=== PATIENT | male | born 1975 | race Caucasian/White ===

== ENCOUNTER 2020-10-10 00:35 | Inpatient (IN) | payer OTHER ==
[2020-10-10] MEDS ORDERED: Boostrix 0.5 ML (Tdap) VIAL ONE (00:40)
[2020-10-10 01:01] LABS: Hemoglobin 15.3 g/dL (14.0-18.0); Mean Corpuscular Hemoglobin 31.6 pg (27.0-31.0); Mean Corpuscular Volume 90.2 fL (78.0-98.0); Mean Platelet Volume 7.6 fL (7.4-10.4); Platelet Count 266 thou/uL (130-400); RBC Distribution Width 11.3 % (11.5-14.5); Red Blood Cell (RBC) Count 4.86 mill/uL (4.70-6.10); White Blood Cell (WBC) Count 30.7 thou/uL (4.8-10.8)
[2020-10-10 01:13] LABS: Band 8 % (5-11); Eosinophils 2 % (0-10); Lymphocytes 20 % (21-51); MDiff Complete? YES; Monocytes 6 % (0-10); Neutrophil 64 % (42-75)
[2020-10-10 01:18] LABS: ALT (SGPT) 129 U/L (8-55); AST (SGOT) 136 U/L (5-34); Albumin 3.6 g/dL (3.5-5.0); Alkaline Phosphatase 74 U/L (40-110); Anion Gap 19 mmol/L (10-20); BUN (Urea Nitrogen) 15 mg/dL (8.9-20.6); Bilirubin, Total 0.3 mg/dL (0.2-1.2); Calc. Creatinine Clearance 0 mL/min (70-130); Calcium 7.9 mg/dL (7.8-10.44); Carbon Dioxide 13 mmol/L (22-29); Chloride 107 mmol/L (98-107); Globulin 2.6 g/dL (2.4-3.5); Glucose 192 mg/dL (70-105); Potassium 3.7 mmol/L (3.5-5.1); Protein, Total 6.2 g/dL (6.0-8.3); Sodium 135 mmol/L (136-145)
[2020-10-10] MEDS ORDERED: Fentanyl 100 MCG/2 ML VIAL ONE ×4 (01:35→22:18)
[2020-10-10 02:35] LABS: Phosphorus 3.6 mg/dL (2.3-4.7)
[2020-10-10 02:56] LABS: Lactic Acid 4.3 mmol/L (0.5-2.2)
[2020-10-10 03:27] LABS: Magnesium 1.7 mg/dL (1.6-2.6)
[2020-10-10] MEDS ORDERED: Naloxone HCl 0.4 mg/ml Vial IV PRN (03:47)
[2020-10-10] MEDS ORDERED: Promethazine HCl 25 MG/ML VIAL IM PRN ×2 (03:47→22:08)
[2020-10-10] MEDS ORDERED: Ondansetron PF 4 MG/2 ML Vial IVP PRN ×2 (03:47→22:07)
[2020-10-10] MEDS ORDERED: diphenhydrAMINE 25 MG CAP PO PRN (03:47)
[2020-10-10] MEDS ORDERED: diphenhydrAMINE 50 MG/ML VIAL IM PRN (03:47)
[2020-10-10] MEDS ORDERED: HYDROmorphone 10 mg/100 ml CADD IVPB PRN ×2 (03:47→22:35)
[2020-10-10] MEDS ORDERED: diphenhydrAMINE 50 MG/ML VIAL IVP PRN (03:47)
[2020-10-10] MEDS ORDERED: Ketorolac Tromethamine 30 MG/ML VIAL IVP PRN (03:47)
[2020-10-10] MEDS ORDERED: Dextrose 5% in Water 1,000 ML IV PRN (03:55)
[2020-10-10] MEDS ORDERED: Dextrose 50% Abboject 50 ML SYRINGE SLOW IVP PRN (03:55)
[2020-10-10] MEDS ORDERED: hydrALAZINE 20 MG/ML VIAL SLOW IVP PRN (03:55)
[2020-10-10] MEDS ORDERED: Communication Order-Pharmacy FS SCH (04:00)
[2020-10-10] MEDS ORDERED: Potassium Phosphate 15 MMOL in Sodium Chloride 0.9% 250 ML 250 ML IVPB SCH (04:30)
[2020-10-10 04:47] LABS: Hemoglobin 13.9 g/dL (14.0-18.0); Mean Corpuscular Hemoglobin 28.7 pg (27.0-31.0); Mean Corpuscular Volume 89.6 fL (78.0-98.0); Mean Platelet Volume 7.6 fL (7.4-10.4); Platelet Count 242 thou/uL (130-400); RBC Distribution Width 11.5 % (11.5-14.5); Red Blood Cell (RBC) Count 4.86 mill/uL (4.70-6.10); White Blood Cell (WBC) Count 22.1 thou/uL (4.8-10.8)
[2020-10-10] MEDS ORDERED: Magnesium 2 GM/50 ML 2 GM in Premix Bag 1 BAG IVPB SCH (05:00)
[2020-10-10 05:33] LABS: Anion Gap 20 mmol/L (10-20); BUN (Urea Nitrogen) 18 mg/dL (8.9-20.6); CK (CPK) 2058 U/L (30-200); Calc. Creatinine Clearance 0 mL/min (70-130); Calcium 7.9 mg/dL (7.8-10.44); Carbon Dioxide 17 mmol/L (22-29); Chloride 105 mmol/L (98-107); Glucose 163 mg/dL (70-105); Magnesium 1.7 mg/dL (1.6-2.6); Phosphorus 3.4 mg/dL (2.3-4.7); Potassium 3.7 mmol/L (3.5-5.1); Sodium 138 mmol/L (136-145)
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
[2020-10-10 06:09] LABS: SARS-CoV-2 NAA Rapid Test Not Detected (NotDetected)
[2020-10-10] MEDS: Sodium Chloride 0.9% 1,000 ML IV SCH ×2 (06:22→11:20)
[2020-10-10] MEDS ORDERED: Lactated Ringer's 1,000 ML IV SCH ×2 (06:45→14:00)
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
--- NOTE | 2020-10-10 07:34 | RAD ---
XR Chest 1 View Portable History: Chest pain Comparison: None. Findings: Lungs are hypoinflated. No confluent airspace consolidation, pneumothorax or effusion. Spur ious enlargement of the cardiac silhouette due to poor inspiratory effort. Impression: Poor inspiratory effort. No acute intrathoracic abnormality.
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
--- NOTE | 2020-10-10 07:49 | RAD ---
XR Forearm Rt 2 View STANDARD History: Injury Comparison: None. Findings: Mildly comminuted distal ulna metaphyseal fracture. Punctate radiopaque debris within the d orsal lateral soft tissues. Impression: 1. Mildly comminuted distal ulnar metaphyseal fracture. 2. Punctate radiopaque debris within the dorsal lateral soft tissues.
--- NOTE | 2020-10-10 07:50 | RAD ---
XR Tib Fib Rt Leg 2 View History: Injury Comparison: None. Findings: Comminuted bicondylar tibial plateau fracture with disassociation of the metaphysis from th e diaphysis. Very high likelihood of a fibular head/neck fracture. Impression: 1. Comminuted bicondylar tibial plateau fracture with metaphyseal/diaphyseal disassociation. 2. High likelihood of a fibular head/neck fracture.
--- NOTE | 2020-10-10 07:51 | RAD ---
XR Femur Rt 2 View STANDARD History: Injury Comparison: None. Findings: Femurs intact. No injury. Impression: Limited femur evaluation is intact.
--- NOTE | 2020-10-10 07:56 | RAD ---
XR Chest 1 View Portable History: Central line placement Comparison: Radiograph same day Findings: Left subclavian central venous catheter tip projects over the inferior SVC. No pneumothorax . Impression: Uncomplicated central line placement.
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
[2020-10-10] MEDS ORDERED: Potassium Phosphate 15 MMOL, Magnesium Sulfate 2 GM in Sodium Chloride 0.9% 250 ML 250 ML IVPB SCH (08:45)
[2020-10-10] MEDS ORDERED: Lidocaine 1% PF 5 ML VIAL ONE (09:37)
[2020-10-10] MEDS ORDERED: Ondansetron PF 4 MG/2 ML Vial ONE (09:37)
[2020-10-10] MEDS ORDERED: Rocuronium Bromide 10 MG/ML (10ML VIAL) ONE (09:37)
[2020-10-10] MEDS ORDERED: Dexamethasone 20 MG/5 ML VIAL ONE (09:37)
[2020-10-10] MEDS ORDERED: PHENYLEPHRINE-NS 100 MCG/ML 10 ML SYRINGE ONE (09:37)
[2020-10-10] MEDS ORDERED: PROPOFOL 200 MG/20 ML VIAL ONE (09:37)
[2020-10-10] MEDS ORDERED: Ketorolac Tromethamine 30 MG/ML VIAL ONE (09:37)
[2020-10-10] MEDS ORDERED: Glycopyrrolate 0.2 MG/ML 5 ML SYRINGE ONE (09:37)
[2020-10-10] MEDS ORDERED: diphenhydrAMINE 50 MG/ML VIAL ONE (09:37)
[2020-10-10 10:29] LABS: Lactic Acid 4.5 mmol/L (0.5-2.2)
[2020-10-10] MEDS ORDERED: Iopamidol-370 76% 500 ML 1 ML ONE ×2 (10:32→10:33)
[2020-10-10] MEDS: Famotidine/PF 20 mg/2ml Vial SLOW IVP SCH (11:21)
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
[2020-10-10 15:49] VITALS: BMI 49.6
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
[2020-10-10] MEDS ORDERED: Neomycin-Polymyxin 1 ML AMP ONE ×2 (17:53→19:20)
[2020-10-10] MEDS ORDERED: HYDROmorphone 2 MG/ML VIAL ONE (19:55)
[2020-10-10] MEDS ORDERED: Rocuronium Bromide 50 MG/5 ML VIAL ONE (19:56)
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
[2020-10-10] MEDS ORDERED: Lidocaine 1% w/Epinephrine 1:100K 20 ML VIAL ONE (21:31)
[2020-10-10] MEDS ORDERED: Bupivacaine PF 0.5% 30 ML VIAL ONE (21:31)
[2020-10-10] MEDS ORDERED: EPINEPHrine 1 MG/ML AMP ONE (21:34)
[2020-10-10] MEDS ORDERED: Cepastat Lozenges 1 LOZ PO PRN (22:07)
[2020-10-10] MEDS ORDERED: Ondansetron ODT 4 MG TAB PO PRN (22:07)
[2020-10-10] MEDS ORDERED: Bisacodyl 10 MG SUPP PR PRN (22:07)
[2020-10-10] MEDS ORDERED: Fentanyl 100 MCG/2 ML VIAL SLOW IVP PRN (22:07)
[2020-10-10] MEDS ORDERED: Milk Of Magnesia 30 ML UDCUP PO PRN (22:07)
[2020-10-10] MEDS ORDERED: Fleet Enema 133 ML BOT PR PRN (22:07)
[2020-10-10] MEDS ORDERED: Ondansetron HCl/PF 4 MG/2 ML Vial IVP PRN (22:08)
[2020-10-10] MEDS ORDERED: Meperidine HCl/PF 25 MG/ML VIAL SLOW IVP PRN (22:08)
[2020-10-10] MEDS ORDERED: HYDROmorphone 2 MG/ML VIAL SLOW IVP PRN (22:08)
[2020-10-10] MEDS ORDERED: Senokot S 8.6-50 MG TAB PO SCH (22:30)
[2020-10-11] MEDS: Famotidine/PF 20 mg/2ml Vial SLOW IVP SCH ×3 (00:13→19:53)
[2020-10-11] MEDS: Sodium Chloride 0.9% 1,000 ML IV SCH ×2 (00:14→06:06)
[2020-10-11] MEDS: Ketorolac Tromethamine 30 MG/ML VIAL IVP SCH ×4 (00:14→18:36)
[2020-10-11] MEDS: CEFAZOLIN 2 GM in Premix Bag 1 BAG IVPB SCH ×2 (00:24→08:54)
--- NOTE | 2020-10-11 01:01 | PRG ---
DATE OF SERVICE: 10/10/2020 SUBJECTIVE: The patient was seen during evening rounds, just returning from the PACU. The patient had his right lower extremity repaired by Dr. Hopkins and also stabilization of his diastasis of symphysis pubis. The patient did receive 3 L of LR in the OR. The patient's vital signs were currently stable and he remains afebrile. The patient has a Dilaudid AUTO GLASS TECHNICIAN for pain. The patient voices no complaints or concerns. His pain is controlled at this time. PLAN: Continue supportive care and AUTO GLASS TECHNICIAN Dilaudid pump for pain. Continue maintenance IV fluids until lactate clears. Regular diet as tolerated. Repeat labs in the morning. CPAP at night. The plan was discussed with the patient, who agrees. Job ID: [id number]
--- NOTE | 2020-10-11 01:40 | OP ---
DATE OF PROCEDURE: 10/10/2020 PREOPERATIVE DIAGNOSIS: Severely comminuted medial and lateral tibial plateau fractures of the right knee. POSTOPERATIVE DIAGNOSIS: Severely comminuted medial and lateral tibial plateau fractures of the right knee. PROCEDURE PERFORMED: Open reduction and internal fixation of severely comminuted medial and lateral tibial plateau fracture of the right knee. ANESTHESIA: General. DESCRIPTION OF PROCEDURE: The patient was given preoperative IV antibiotics, taken to the operating room, placed in the supine position. Initially, the patient underwent open reduction and internal fixation of symphysis pubis diastasis and then two cannulated screws were placed in the right sacroiliac joint. This was primarily performed by Dr. Aponte and I assisted him. After those procedures were performed and the incisions were closed, the right lower extremity was sterilely prepped and draped in the usual fashion and after exsanguination, tourniquet at the right proximal thigh was raised to 300 mmHg. Initially, an incision was made on the anterior medial aspect of the proximal leg and then was taken posteriorly at the area of the proximal tibia. The periosteal elevation was performed. The medial tibial plateau was located. There was posterior fragment of bone that was mainly posterior and extended down into the diaphysis. This fracture portion was reduced and internally fixed using two 3.5 cortical screws in a lag fashion. The medial tibial plateau was then brought up to its normal position and bone graft was added to provide some stability and then the medial tibial plateau was internally fixed using a Synthes T-shaped 10-hole plate, initially placing two 3.5 cortical screws to bring the plate up to the bone and then the rest of them were 3.5 locking screws, three were placed in the most proximal portion of the plate, one in the metaphysis and then another 5 in the metaphysis and proximal aspect of the shaft. Separate incision was made on the anterior lateral aspect of the leg and then brought posteriorly at the proximal portion of the tibia and again the lateral tibial plateau was noted to be very fragmented, severely comminuted. The fragments were brought up and then internally fixed using an L-shaped lateral tibial plate. Again, using 3.5 cortical screws in a lag fashion to bring the plate next to the bone and then 3.5 locking screws, five screws were used in the most proximal portion of the plate and then additional six screws were placed in the shaft and metaphyseal region. Cancellous cubes were morselized and placed in the area of defects. All this was performed under fluoroscopic visualization, which showed good position for the plate and the screws. The wounds were then copiously irrigated with antibiotic solution. They were closed using #2 Vicryl to close the muscle fascia over the bone and plates and then 0 Vicryl for the fat and subcutaneous tissue, and skin was closed with skin elizabeth. The wounds were then infiltrated with 30 mL of 0.5% Marcaine with epinephrine. Sterile dressing was applied. The patient was placed in a knee immobilizer and tourniquet was released. The patient was awakened, extubated, and transferred to recovery room in stable condition. ESTIMATED BLOOD LOSS: 300 mL. COMPLICATIONS: None. TOURNIQUET TIME: 114 minutes. Job ID: [id number]
[2020-10-11 05:34] LABS: INR-International Normal Ratio 1.2; PTT 24.5 sec (22.9-36.1); Prothrombin Time 15.7 sec (12.0-14.7)
[2020-10-11 05:49] LABS: Lactic Acid 2.2 mmol/L (0.5-2.2)
[2020-10-11 06:02] LABS: #Basophils 0.1 thou/uL (0.0-0.2); #Lymphocytes 0.9 thou/uL (1.20-3.40); #Monocytes 0.9 thou/uL (0.11-0.59); #Neutrophils 7.9 thou/uL (1.40-6.50); %Basophils 0.7 % (0.0-1.0); %Eosinophils 0.1 % (0.0-10.0); %Lymphocytes 9.5 % (21.0-51.0); %Monocytes 8.9 % (0.0-10.0); %Neutrophils 80.9 % (42.0-75.0); Hemoglobin 10.5 g/dL (14.0-18.0); Mean Corpuscular HGB CONC 33.7 g/dL (32.0-36.0); Mean Corpuscular Hemoglobin 30.7 pg (27.0-31.0); Mean Corpuscular Volume 91.1 fL (78.0-98.0); Mean Platelet Volume 7.5 fL (7.4-10.4); Platelet Count 143 thou/uL (130-400); RBC Distribution Width 11.8 % (11.5-14.5); Red Blood Cell (RBC) Count 3.41 mill/uL (4.70-6.10); White Blood Cell (WBC) Count 9.8 thou/uL (4.8-10.8)
[2020-10-11 06:26] LABS: Anion Gap 11 mmol/L (10-20); BUN (Urea Nitrogen) 12 mg/dL (8.9-20.6); CK (CPK) 3968 U/L (30-200); Calc. Creatinine Clearance 182 mL/min (70-130); Calcium 7.3 mg/dL (7.8-10.44); Carbon Dioxide 23 mmol/L (22-29); Chloride 107 mmol/L (98-107); Glucose 135 mg/dL (70-105); Magnesium 1.8 mg/dL (1.6-2.6); Phosphorus 2.5 mg/dL (2.3-4.7); Potassium 4.5 mmol/L (3.5-5.1); Sodium 136 mmol/L (136-145)
[2020-10-11] MEDS ORDERED: Aspirin 325 MG TAB PO SCH (08:00)
--- NOTE | 2020-10-11 08:03 | RAD ---
Intraoperative imaging of the pelvis: 10/10/2020 COMPARISON: CT 10/10/2020 HISTORY: ORIF of the pelvis FINDINGS: 6 intraoperative images are provided. Images demonstrate placement of a screw and plate fix ation at the level the pubic symphysis as well as placement of 2 screws traversing the right sacroiliac joint. IMPRESSION: ORIF as above.
--- NOTE | 2020-10-11 08:04 | RAD ---
Intraoperative imaging of the right knee: 10/10/2020 COMPARISON: 10/10/2020 HISTORY: ORIF FINDINGS: 4 intraoperative images are provided. Images demonstrate medial and lateral screw and plate fixation of the previously noted markedly comminuted fracture of the proximal right tibia. IMPRESSION: ORIF
[2020-10-11] MEDS: Ferrous Gluconate 324 MG TAB PO SCH ×2 (08:55→18:35)
[2020-10-11] MEDS: Multivitamin W/ Minerals 1 TAB PO SCH (08:55)
[2020-10-11] MEDS: Senokot S 8.6-50 MG TAB PO SCH ×2 (08:55→19:53)
[2020-10-11] MEDS: Polyethylene Glycol 3350 17 GM Packet PO SCH (08:56)
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
[2020-10-11] MEDS ORDERED: traMADol HCl 50 MG TAB PO PRN (13:52)
[2020-10-11] MEDS ORDERED: Morphine 4 MG/ML VIAL SLOW IVP PRN (13:53)
[2020-10-11] MEDS: Ibuprofen 200 MG TAB PO SCH ×2 (14:25→22:45)
[2020-10-11] MEDS: traMADol HCl 50 MG TAB PO SCH ×2 (14:33→19:51)
--- NOTE | 2020-10-11 15:26 | PRG ---
DATE OF SERVICE: 10/11/2020 SUBJECTIVE: The patient underwent stabilization of an open-book pelvic injury per Dr. Aponte and underwent open reduction and internal fixation of severely comminuted medial and lateral tibial plateau fractures on the right knee. The patient has fairly good pain control. He has no neurologic complaints in his lower extremities. OBJECTIVE: VITAL SIGNS: The patient has been afebrile. Pulse 109, respiratory rate 14, blood pressure 113/70, O2 saturation 94% on room air. LABORATORY DATA: Shows white count of 9.8, hemoglobin 10.5, hematocrit 31.1. His lactic acid has gone back to normal, this morning was 2.2. Both lower extremities are neurovascularly intact. PLAN: The patient will work with physical therapy. He will need to be nonweightbearing on the right lower extremity because of the nondisplaced fracture in the distal shaft of the right ulna. The patient will need to use a platform on his walker and weightbear through his right elbow and shoulder his forearm. Job ID: [id number]
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
[2020-10-11] MEDS: Acetaminophen 500 MG TAB PO SCH (18:33)
[2020-10-11] MEDS: Gabapentin 300 MG CAP PO SCH (19:52)
[2020-10-11] MEDS: Enoxaparin Sodium 30 MG/0.3 ML SYRINGE SC SCH (19:52)
[2020-10-12] MEDS: Acetaminophen 500 MG TAB PO SCH ×4 (00:59→18:05)
[2020-10-12] MEDS: traMADol HCl 50 MG TAB PO SCH ×4 (01:00→20:15)
[2020-10-12] MEDS: Ibuprofen 200 MG TAB PO SCH ×3 (05:20→22:40)
[2020-10-12 07:17] LABS: Anion Gap 11 mmol/L (10-20); BUN (Urea Nitrogen) 12 mg/dL (8.9-20.6); Calc. Creatinine Clearance 243 mL/min (70-130); Calcium 7.4 mg/dL (7.8-10.44); Carbon Dioxide 26 mmol/L (22-29); Chloride 105 mmol/L (98-107); Glucose 111 mg/dL (70-105); Phosphorus 2.1 mg/dL (2.3-4.7); Potassium 4.1 mmol/L (3.5-5.1); Sodium 138 mmol/L (136-145)
[2020-10-12 07:18] LABS: #Eosinphils 0.1 thou/uL (0.0-0.7); #Lymphocytes 2.2 thou/uL (1.20-3.40); #Monocytes 0.8 thou/uL (0.11-0.59); #Neutrophils 5.1 thou/uL (1.40-6.50); %Basophils 0.5 % (0.0-1.0); %Eosinophils 1.3 % (0.0-10.0); %Lymphocytes 26.6 % (21.0-51.0); %Monocytes 9.6 % (0.0-10.0); Hemoglobin 8.6 g/dL (14.0-18.0); Mean Corpuscular HGB CONC 33.7 g/dL (32.0-36.0); Mean Corpuscular Hemoglobin 30.5 pg (27.0-31.0); Mean Corpuscular Volume 90.8 fL (78.0-98.0); Mean Platelet Volume 7.5 fL (7.4-10.4); Platelet Count 134 thou/uL (130-400); RBC Distribution Width 11.6 % (11.5-14.5); Red Blood Cell (RBC) Count 2.81 mill/uL (4.70-6.10); White Blood Cell (WBC) Count 8.3 thou/uL (4.8-10.8)
[2020-10-12] MEDS: Gabapentin 300 MG CAP PO SCH ×2 (09:46→20:15)
[2020-10-12] MEDS: Senokot S 8.6-50 MG TAB PO SCH ×2 (09:46→20:15)
[2020-10-12] MEDS: Ferrous Gluconate 324 MG TAB PO SCH ×2 (09:46→18:05)
[2020-10-12] MEDS: Multivitamin W/ Minerals 1 TAB PO SCH (09:46)
[2020-10-12] MEDS: Polyethylene Glycol 3350 17 GM Packet PO SCH (09:47)
[2020-10-12] MEDS: Enoxaparin Sodium 30 MG/0.3 ML SYRINGE SC SCH ×2 (09:47→20:16)
[2020-10-12] MEDS: Famotidine/PF 20 mg/2ml Vial SLOW IVP SCH (13:50)
[2020-10-12] MEDS ORDERED: Sodium Chloride 0.9% 1,000 ML IV SCH (20:30)
[2020-10-12] MEDS ORDERED: Famotidine 20 MG TAB PO SCH (21:00)
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
[2020-10-12 21:39] LABS: Hemoglobin 8.5 g/dL (14.0-18.0)
[2020-10-12] MEDS: Milk Of Magnesia 30 ML UDCUP PO SCH (22:40)
[2020-10-13] MEDS: Acetaminophen 500 MG TAB PO SCH ×2 (00:22→05:01)
[2020-10-13] MEDS: traMADol HCl 50 MG TAB PO SCH ×2 (01:32→10:29)
[2020-10-13] MEDS: Ibuprofen 200 MG TAB PO SCH (05:01)
[2020-10-13 05:22] LABS: #Eosinphils 0.3 thou/uL (0.0-0.7); #Monocytes 0.7 thou/uL (0.11-0.59); #Neutrophils 5.3 thou/uL (1.40-6.50); %Basophils 0.4 % (0.0-1.0); %Eosinophils 3.2 % (0.0-10.0); %Monocytes 7.1 % (0.0-10.0); %Neutrophils 57.3 % (42.0-75.0); Hemoglobin 8.2 g/dL (14.0-18.0); Mean Corpuscular HGB CONC 33.4 g/dL (32.0-36.0); Mean Corpuscular Volume 89.8 fL (78.0-98.0); Mean Platelet Volume 7.3 fL (7.4-10.4); Platelet Count 172 thou/uL (130-400); RBC Distribution Width 11.5 % (11.5-14.5); Red Blood Cell (RBC) Count 2.74 mill/uL (4.70-6.10); White Blood Cell (WBC) Count 9.3 thou/uL (4.8-10.8)
[2020-10-13 05:46] LABS: Anion Gap 11 mmol/L (10-20); BUN (Urea Nitrogen) 11 mg/dL (8.9-20.6); CK (CPK) 3468 U/L (30-200); Calc. Creatinine Clearance 260 mL/min (70-130); Calcium 7.6 mg/dL (7.8-10.44); Carbon Dioxide 27 mmol/L (22-29); Chloride 104 mmol/L (98-107); Glucose 101 mg/dL (70-105); Magnesium 1.8 mg/dL (1.6-2.6); Potassium 3.9 mmol/L (3.5-5.1); Sodium 138 mmol/L (136-145)
[2020-10-13 08:53] VITALS: BP 121/80; TEMP 98.1
[2020-10-13] MEDS: Gabapentin 300 MG CAP PO SCH (10:29)
[2020-10-13] MEDS: Senokot S 8.6-50 MG TAB PO SCH (10:29)
[2020-10-13] MEDS: Polyethylene Glycol 3350 17 GM Packet PO SCH (10:29)
[2020-10-13] MEDS: Multivitamin W/ Minerals 1 TAB PO SCH (10:30)
[2020-10-13] MEDS: Ferrous Gluconate 324 MG TAB PO SCH (10:30)
[2020-10-13] MEDS: Milk Of Magnesia 30 ML UDCUP PO SCH (10:32)
[2020-10-13] MEDS: Enoxaparin Sodium 30 MG/0.3 ML SYRINGE SC SCH (10:34)
[2020-10-13] MEDS ORDERED: Ketorolac Tromethamine 30 MG/ML VIAL IVP SCH (13:00)
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
[2020-10-13] MEDS ORDERED: Ibuprofen 200 MG TAB PO SCH (22:00)
== END 2020-10-13 11:45 | disposition home or self-care (01) | DRG 958 ==
LOC: ERS 00:35 → ERHOLD 02:08 → SURG A 06:07
PROVIDERS: ADMIT Surgery; ATTEND Surgery
PROC: 0QSG04Z Reposition Right Tibia with Internal Fixation Device, Open Approach (ICD-10-PCS; principal; 2020-10-10)
PROC: 0QS204Z Reposition Right Pelvic Bone with Internal Fixation Device, Open Approach (ICD-10-PCS; 2020-10-10)
PROC: 0QH104Z Insertion of Internal Fixation Device into Sacrum, Open Approach (ICD-10-PCS; 2020-10-10)
PROC: 30233K1 Transfusion of Nonautologous Frozen Plasma into Peripheral Vein, Percutaneous Approach (ICD-10-PCS; 2020-10-10)
PROC: 30233N1 Transfusion of Nonautologous Red Blood Cells into Peripheral Vein, Percutaneous Approach (ICD-10-PCS; 2020-10-10)
DX: S82.141A Displaced bicondylar fracture of right tibia, initial encounter for closed fracture (principal); S52.201A Unspecified fracture of shaft of right ulna, initial encounter for closed fracture; S27.321A Contusion of lung, unilateral, initial encounter; S37.892A Contusion of other urinary and pelvic organ, initial encounter; N17.9 Acute kidney failure, unspecified; E87.2 Acidosis; Y93.01 Activity, walking, marching and hiking; I10 Essential (primary) hypertension; R21 Rash and other nonspecific skin eruption; S33.4XXA Traumatic rupture of symphysis pubis, initial encounter; T79.6XXA Traumatic ischemia of muscle, initial encounter; S33.2XXA Dislocation of sacroiliac and sacrococcygeal joint, initial encounter; Z20.828 Contact with and (suspected) exposure to other viral communicable diseases; V04.90XA Pedestrian on foot injured in collision with heavy transport vehicle or bus, unspecified whether traffic or nontraffic accident, initial encounter; Y92.410 Unspecified street and highway as the place of occurrence of the external cause; Z79.899 Other long term (current) drug therapy
CPT/HCPCS: 29125; 36415; 36430; 36556; 51610; 51702; 70450; 71045; 71260; 72125; 72170; 74177; 74450; 80048; 80053; 82550; 83605; 83735; 84100; 85025; 85610; 85730; 86850; 86900; 86901; 90471; 90715; 94660; 96374; C1713; C1769; G0390; J0171; J0690; J1100; J1170; J1200; J1650; J1885; J2405; J2704; J3010; J3475; J7050; P9016; P9059; Q9967; S0020; S0028; U0002